=== PATIENT | male | born 1955 | race African-American/Black ===

== ENCOUNTER 2020-10-20 18:11 | Inpatient (IN) | payer BC ==
[~2020-10-20] VITALS: Ht 190.5 cm; Wt 92.5 kg
[2020-10-20] MEDS ORDERED: HYDR25TA4 PO (18:22)
[2020-10-20] MEDS ORDERED: LEVO100T9 PO (18:22)
[2020-10-20] MEDS ORDERED: APIX5TAB PO (18:22)
[2020-10-20] MEDS ORDERED: TRIA1TAB3 PO (18:22)
[2020-10-20] MEDS ORDERED: SIMV-49 PO (18:22)
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
[2020-10-20] MEDS ORDERED: LIDOCAINE 1%-EPI 1:100,000 20 ML VIAL ONE (19:54)
--- NOTE | 2020-10-20 20:42 | NUR ---
COVID SWAB SAMPLE RAPID COLLECTED AND SENT TO THE LAB.
--- NOTE | 2020-10-20 21:09 | NUR ---
CALL FROM LAB. RAPID COVID NEGATIVE.
--- NOTE | 2020-10-20 21:11 | NUR ---
PT SITTING UP, AAOX4, VSS. RR EVEN & UNLABORED. DENIES CP, SOB, DIZZINESS, N/V, CAMPOS, WEAKNESS AT THIS TIME. WILL CONT TO MONITOR.
--- NOTE | 2020-10-20 21:52 | NUR ---
REPORT GIVEN TO TANIA VALLADARES FOR TRISTIAN.
--- NOTE | 2020-10-20 22:05 | NUR ---
RN NOTE PT ARRIVED TO THE UNIT VIA WHEELCHAIR, A/A/O X4, ON RA SATING 100%, UNLABORED BREATHING.. SAFETY MEASURES IN PLACE.
[2020-10-20 22:30] VITALS: BP 153/92
[2020-10-20] MEDS ORDERED: ONDANSETRON HCL/PF 4 MG/2 ML VIAL IVP PRN (22:30)
[2020-10-20] MEDS ORDERED: Z GUARD REMEDY 2 OZ OINT TP PRN (22:30)
[2020-10-20] MEDS ORDERED: ACETAMINOPHEN 325 MG TABLET PO PRN (22:30)
[2020-10-21] MEDS ORDERED: TEMAZEPAM 15 MG CAPSULE PO PRN (01:30)
[2020-10-21 04:00] VITALS: BP 106/70
[2020-10-21 05:06] LABS: BASOPHILS % (AUTO) 0.3 % (0.0-2.0); EOSINOPHILS % (AUTO) 1.8 % (0.0-6.0); HEMATOCRIT 44 % (39-51); HEMOGLOBIN 14.2 g/dL (13.5-17.5); LYMPHOCYTES # (AUTO) 2.4 /CMM (0.8-4.8); LYMPHOCYTES % (AUTO) 29.2 % (20.0-44.0); MEAN CORPUSCULAR HGB CONC 33 g/dl (31.0-36.0); MEAN CORPUSCULAR VOLUME 86 fL (80-96); MONOCYTES # (AUTO) 0.9 /CMM (0.1-1.30); MONOCYTES % (AUTO) 10.4 % (2.0-12.0); NEUTROPHILS # (AUTO) 4.8 /CMM (1.8-8.9); NEUTROPHILS % (AUTO) 58.3 % (43.0-81.0); PLATELET COUNT (AUTO) 216 /CMM (150-450); RED BLOOD CELL COUNT(AUTO) 5.07 MIL/uL (4.5-6.0); WHITE BLOOD COUNT (AUTO) 8.2 K/uL (4.3-11.0)
[2020-10-21 05:25] LABS: ALBUMIN 3.3 g/dL (3.4-5.0); BILIRUBIN,TOTAL 0.2 mg/dL (0.2-1.0); CALCIUM, SERUM 8.8 mg/dL (8.5-10.1); CREATININE 1.2 mg/dL (0.6-1.3); PHOSPHORUS 4.3 mg/dL (2.5-4.9); POTASSIUM 3.6 mmol/L (3.5-5.1); TOTAL PROTEIN, SERUM 6.5 g/dL (6.4-8.2)
--- NOTE | 2020-10-21 07:23 | NUR ---
RN NOTE REPORT GIVEN TO ONCOMING SHIFT FOR TRISTIAN.
--- NOTE | 2020-10-21 07:38 | NUR ---
RN OPENING NOTE PATIENT IS CURRENTLY IN BED WITH HOB AT SEMI FOWLERS POSITION. PATIENT IS ON ROOM AIR WITH NO SIGNS OF LABORED BREATHING. PATIENT IS AOX4. SKIN IS INTACT WITH LEFT EYEBROW STITCHES. RAC #[id number] IS PATENT, INTACT, AND HAS NO SIGNS OF INFILTRATION. BED IS LOCKED IN THE LOWEST POSITION, 3 GUARD RAILS RAISED, AND ALL HOSPITAL SAFETY PRECAUTIONS ARE BEING FOLLOWED. WILL CONTINUE TO MONITOR THROUGHOUT SHIFT.
[2020-10-21 08:00] VITALS: BP 134/79
[2020-10-21 08:54] VITALS: BP 134/79
[2020-10-21] MEDS ORDERED: MAXZIDE TABLET 1 UDTAB TABLET PO SCH (09:00)
[2020-10-21] MEDS ORDERED: TRIAMTERENE/HYDROCHLOROTHIAZID (37.5/25MG) 1 UDCAP PO SCH (09:00)
[2020-10-21] MEDS ORDERED: ACET325T53 PO (12:23)
--- NOTE | 2020-10-21 14:00 | NUR ---
CIRCUS TRAINER NOTE PATIENT IN STABLE CONDITION AT TIME OF DISCHARGE. EXIT CARE AND EDUCATION ARE PROVIDED. SPOUSE PICKING PATIENT UP.
[2020-10-21] MEDS ORDERED: SIMVASTATIN 20 MG TABLET PO SCH (22:00)
== END 2020-10-21 13:40 | disposition home or self-care (01) | DRG 605 ==
LOC: ER 18:13 → MEDSG1 21:41
PROVIDERS: ADMIT Nurse Practitioner Acute Care; ATTEND Nurse Practitioner Acute Care
DX: S01.81XA Laceration without foreign body of other part of head, initial encounter (principal); D68.59 Other primary thrombophilia; I10 Essential (primary) hypertension; E03.9 Hypothyroidism, unspecified; I48.91 Unspecified atrial fibrillation; E78.5 Hyperlipidemia, unspecified; Y92.009 Unspecified place in unspecified non-institutional (private) residence as the place of occurrence of the external cause; Z20.822 Contact with and (suspected) exposure to COVID-19; V19.88XA Pedal cyclist (driver) (passenger) injured in other specified transport accidents, initial encounter; Y93.A1 Activity, exercise machines primarily for cardiorespiratory conditioning; W22.09XA Striking against other stationary object, initial encounter; Z79.01 Long term (current) use of anticoagulants
CPT/HCPCS: 36415; 70450-TC; 80053-TC; 80061-TC; 83735-TC; 84100-TC; 84484-TC; 85025-TC; 87081-TC; A6253; A6403; C9803; G0378; J3490